=== PATIENT | male | born 1960 | race Caucasian/White ===

== ENCOUNTER → 2022-02-04 | Outpatient (CLI) | payer BC ==
[~2022-02-04] MED LIST: ASPIRIN81 MG PO; BENAZEPRIL HCL10 MG PO; CLONAZEPAM1 MG PO; DILTIAZEM ER120 M2 PO; MAGNESIUM OXID400 MG PO; METOPROLOL SUCC50 MG PO; SPIRONOLACTONE25 MG PO; TIKOSYN250 MCG PO
== END ==
LOC: NM 10:00
PROVIDERS: ATTEND Internal Medicine
DX: R79.1 Abnormal coagulation profile (principal)
CPT/HCPCS: 78580; A9540

== ENCOUNTER → 2022-02-07 | Day surgery (SDC) | payer BC ==
[2022-02-02 09:37] LABS: BASOPHILS # (AUTO) 0.1 (0.0-0.1); BASOPHILS % 1.2 % (0.0-1.0); EOSINOPHILS # (AUTO) 0.3 (0.0-0.4); EOSINOPHILS % 4.4 % (0.0-6.0); HEMATOCRIT 44.1 % (38.2-49.6); HEMOGLOBIN 14.6 g/dL (14.0-18.0); LYMPHOCYTES % 15.7 % (18.0-39.1); MEAN CORPUSCULAR HEMOGLOBIN 34.2 pg (28-32); MEAN CORPUSCULAR HGB CONC 33.1 g/dL (31-35); MEAN CORPUSCULAR VOLUME 103.3 fL (81-99); MONOCYTES # (AUTO) 0.8 (0.2-0.8); MONOCYTES % 12.5 % (4.4-11.3); NEUTROPHILS # (AUTO) 4.4 (2.1-6.9); NEUTROPHILS % 65.7 % (38.7-80.0); PLATELET COUNT 270 x10e3/uL (140-360); RED BLOOD COUNT 4.27 x10e6/uL (4.3-5.7); RED CELL DISTRIBUTION WIDTH 13.2 % (11.7-14.4)
[2022-02-02 09:56] LABS: ANION GAP 12.3 mmol/L (8-16); CALCIUM 9.6 mg/dL (8.4-10.2); CREATININE, SERUM 2.1 mg/dL (0.72-1.25); POTASSIUM 5.3 mmol/L (3.5-5.1)
[~2022-02-07] MED LIST changes: +FENTANYL CITRATE/PF 100MCG/2 ML INJ ONE; +GLUCAGON FOR INJ 1 MG VIAL ONE; +HYOSCYAMINE SULFATE 0.5 MG/ML INJ ONE; +LIDOCAINE HCL 2% LOCAL INJ 5 ML SDV VIAL INJ ONE; +MIDAZOLAM HCL 2 MG/2 ML VIAL ONE; +PROPOFOL IV EMULSION 10 MG/ML 20 ML VIAL ONE
[2022-02-07 11:58] VITALS: BP 112/61
[2022-02-07 12:35] LABS: % IRON SATURATION 28 % (15-50); IRON 79 ug/dL (65-175); TOTAL IRON BINDING CAPACITY 283 ug/dL (261-478); TRANSFERRIN 202 mg/dL (174-364)
== END | disposition home or self-care (01) ==
LOC: OR 08:05
PROVIDERS: ATTEND Internal Medicine Gastroenterology
DX: Z12.11 Encounter for screening for malignant neoplasm of colon (principal); D12.2 Benign neoplasm of ascending colon; K57.30 Diverticulosis of large intestine without perforation or abscess without bleeding; K64.8 Other hemorrhoids; Z71.3 Dietary counseling and surveillance; Z71.89 Other specified counseling; I12.9 Hypertensive chronic kidney disease with stage 1 through stage 4 chronic kidney disease, or unspecified chronic kidney disease; N18.9 Chronic kidney disease, unspecified; R00.1 Bradycardia, unspecified; F41.9 Anxiety disorder, unspecified; F17.210 Nicotine dependence, cigarettes, uncomplicated; Z88.6 Allergy status to analgesic agent; Z88.0 Allergy status to penicillin; Z01.810 Encounter for preprocedural cardiovascular examination; Z01.812 Encounter for preprocedural laboratory examination; Z20.822 Contact with and (suspected) exposure to COVID-19; Z79.82 Long term (current) use of aspirin; Z79.899 Other long term (current) drug therapy; Z68.28 Body mass index [BMI] 28.0-28.9, adult
CPT/HCPCS: 36415 ×2; 45380; 45385; 80048; 82607; 82746; 83540; 84132; 84466; 85025; 85045; 93005; J1610; J1980; J2001; J2250; J2704; J3010; U0002; 45378

== ENCOUNTER → 2022-02-25 | Outpatient (CLI) | payer BC ==
[~2022-02-25] MED LIST changes: -FENTANYL CITRATE/PF 100MCG/2 ML INJ ONE; -GLUCAGON FOR INJ 1 MG VIAL ONE; -HYOSCYAMINE SULFATE 0.5 MG/ML INJ ONE; -LIDOCAINE HCL 2% LOCAL INJ 5 ML SDV VIAL INJ ONE; -MIDAZOLAM HCL 2 MG/2 ML VIAL ONE; -PROPOFOL IV EMULSION 10 MG/ML 20 ML VIAL ONE
== END ==
LOC: CT 07:43
PROVIDERS: ATTEND Internal Medicine
DX: J44.9 Chronic obstructive pulmonary disease, unspecified (principal)
CPT/HCPCS: 71250

== ENCOUNTER 2022-07-09 20:34 | Emergency (ER) | payer BC ==
[~2022-07-09] VITALS: Ht 188 cm; Wt 81.6 kg
== END 2022-07-09 20:57 | disposition home or self-care (01) ==
LOC: ER 20:46
DX: G56.31 Lesion of radial nerve, right upper limb (principal)
CPT/HCPCS: 99282